=== PATIENT | female | born 1955 | race Caucasian/White ===

== ENCOUNTER 2025-06-26 11:39 | Emergency (ER) | payer MEDICARE, SELFPAY ==
--- OUTSIDE RECORDS SUMMARY | 2011-03-16 06:00 | XMS_ITS | Continuity of Care Document ---
Author Organization Brian [facility] Address [address] [place] [address] Phone Care Team Providers Care Inorganic Chemical Technician Name Role Phone Unavailable Unavailable Unavailable Allergies, Adverse Reactions, Alerts Substance Reaction Status Criticality bisacodyl Active No Information tramadol Active No Information nortriptyline Active No Information sumatriptan Active No Information doxycycline Active No Information AMOXICILLIN TRIHYDRATE Active No In formation citalopram bad dreams Active No Information WARNIN allergy(ies) could not be collected because the type is not supported. Please contact the source practice for further details. Medications Medication Instructions Dosage Effective Dates (start - stop) Status Comments naproxen 500 mg Tab Take two capsules by mouth twice per day (2CAP PO BID) - Active Roxicet 5 mg-325 mg/5 mL Oral Soln Take one tablet by mouth three times per day (1T PO TID) - Active LYRICA 50mgCAPSULE see instructions - Active Fosamax 70 mg Tab unknown - Active Estrace 0.5 mg Tab unknown - Active CALTRATE 600 [id number] Take one capsule by mouth daily (1CAP PO QD) - Active multivitamin Tab unknown - Active Prilosec 20 mg Cap Take one capsule by mouth daily (1CAP PO QD) - Active ROBAXIN 750MGTABLET 1 Tablet by mouth at bedtime (1T PO HS) - No Longer Active DARVOCET-N 100 100-650MGTABLET Take one tablet by mouth every six hours (1T PO Q6H) - No Longer Active LYRICA 50mgCAPSULE 2 Capsules by mouth at bedtime (2CAP PO HS) - No Longer Active Procedures Procedure Date Offic/outpt E&m Estab Low-mod 1 Cervicothorac MB single level 0 Cervicothoracic MB addl level 0 Mod cs by same phys, 5 yrs + Fluoroscopic Guidance For Needle Placeme nt - Spine Marcaine (1 mL = 1 Unit) Epidural Tray Intravenous infusion, for therapy, proph ylaxis, or Versed (1 Mg = 1 Unit) Generator 1000 LR (Ringers) IV Admin Kit Fentanyl Citrate (2 ml = 1 Unit) 2009 Grounding Pad IV Start Kit Inj Anes Facet Jt; Cerv/thor-1st Level S Inj Anes Facet Jt; Cerv/thor-3rd Level S Inj Anes Facet Jt; Cerv/thor-2nd Level S Lo Osm Contr Mat (200-249mg) Epidural Tray Inj Anes Facet Jt; Cerv/thor-1st Level S Inj Anes Facet Jt; Cerv/thor-3rd Level S Inj Anes Facet Jt; Cerv/thor-2nd Level S Marcaine (1 mL = 1 Unit) Lo Osm Contr Mat (200-249mg) Epidural Tray Offic Cons New/estab Mod 40 Mi 10 Advance Directives Directive Yes / No Effective Date File Name No Information Encounters Encounter Description Practice Location Reason(s) For Visit Diagnoses Date Provider Providers Copied on Encounter Offic/outpt E&m Estab Low-mod Brian [facility], [address], [place], [place], [id number], [place] tel:[phone] [facility] No Information 1 No Information Referring Provider: Rupa Elkins MD R, [address] [place], [address]. tel:[phone] [facility], [address], [place], [place], [address], [place] tel:[phone] [facility] No Information 0 Cassim Hazmer. [address], [place], [address], [place]. tel:[phone] Referring Provider: Rupa Elkins MD R, [address] [place], [address]. tel:[phone] [facility], [address], [place], [place], [address], [place] tel:[phone] [facility] No Information 0 Cassim Hazmer. [address], [address], [place], [address], [place]. tel:[phone] Referring Provider: Rupa Elkins MD R, [address] [place], [address]. tel:[phone] Brian [facility], [address], [place], [place], [address], [place] tel:[phone] [facility] No Information 0 Cassim Hazmer. [address], [address], [place], [address], [place]. tel:[phone] Referring Provider: Rupa Elkins MD R, [address] [place], [address]. tel:[phone] Offic Cons New/estab Mod 40 Mi Brian, [facility], [address], [place], [place], [address], [place] tel:[phone] [facility] No Information 9-201 0 Ander SPARROWP Karen. [address], [place], [address], [place]. tel:[phone] Referring Provider: Rupa Elkins MD R, [address] [facility], [place], [address]. tel:[phone] Family History Family Member Type Diagnosis Age At Onset No Information Payers Payer name Insurance type Covered democrat ID Authorlibia isisartemio(s) Blue Plus [id number] Social History Type Description Quantity Date Captured Comments Alcohol Use Details Unknown Caffeine Use Details Unknown Tobacco Use Status No Information Smoking Status No Information Non-Smoking Tobacco Use Details : No Details Available : No Details Available Sex Female Chief Complaint And Reason For Visit No Information Reason For Referral Reason For Referral No Information History Of Present Illness Encounter Date Complaint History Of Prese nt Illness No Information Functional Status Date Functional Assessmen t No Information Instructions Date Instruction Additional Infor mation No Information Assessments Type Assessment Date No Information Patient Care Teams Name Effective Dates (start - stop) Status Members No Information
--- OUTSIDE RECORDS SUMMARY | 2011-03-16 06:00 | XMS_ITS | Continuity of Care Document ---
Author Organization Brian [facility] Address [address] [place] [address] Phone Care Team Providers Care Continuous Towel Roller Name Role Phone Unavailable Unavailable Unavailable Allergies, [...] Effective Dates (start - stop) Status Comments Prilosec 20 mg Cap Take one capsule by mouth daily (1CAP PO QD) - Active multivitamin Tab unknown - Active CALTRATE 600 [id number] Take one capsule by mouth daily (1CAP PO QD) - Active Estrace 0.5 mg Tab unknown - Active Fosamax 70 mg Tab unknown - Active LYRICA 50mgCAPSULE see instructions - Active Roxicet 5 mg-325 mg/5 mL Oral Soln Take one tablet by mouth three times per day (1T PO TID) - Active naproxen 500 mg Tab Take two capsules by mouth twice per day (2CAP PO BID) - Active LYRICA 50mgCAPSULE 2 Capsules by mouth at bedtime (2CAP PO HS) - No Longer Active DARVOCET-N 100 100-650MGTABLET Take one tablet by mouth every six hours (1T PO Q6H) - No Longer Active ROBAXIN 750MGTABLET 1 Tablet by mouth at bedtime (1T PO HS) - No Longer Active Procedures [...] Copied on Encounter Offic/outpt E&m Estab Low-mod Brian, [facility], [address], [place], [place], [id number], [place] tel:[phone] [facility] No Information 1 No Information Referring Provider: Rupa Elkins MD R, [address] [place], [address]. tel:[phone] [facility] Torres, [address], [place], [place], [id number], [place] tel:[phone] [facility] No Information 0 Cassim Hazmer. [address], [place], [address], [place]. tel:[phone] Referring Provider: Rupa Elkins MD R, [address] [place], [address]. tel:[phone] [facility] Torres, [address], [place], [place], [address], [place] tel:[phone] [facility] No Information 0 Cassim Hazmer. [address], [place], [address], [place]. tel:[phone] Referring Provider: Rupa Elkins MD R, [address] [place], [address]. tel:[phone] Brian [facility], [address], [place], [place], [id number], [place] tel:[phone] [facility] No Information 0 Cassim Hazmer. [address], [place], [address], [place]. tel:[phone] Referring Provider: uRpa Elkins MD R, [address] [place], [address]. tel:[phone] Offic Cons New/estab Mod 40 Mi Brian, [facility], [address], [place], [place], [address], [place] tel:[phone] [facility] No Information 9-201 0 Ander SPARROWP Karen. [address], [place], [address], [place]. tel:[phone] Referring Provider: Rupa Elkins MD R, [address] [facility], [place], [address]. tel:[phone] Family History Family Member Type Diagnosis Age At Onset No Information Payers Payer name Insurance type Covered libertarian ID Authorlibia isisartemio(s) Blue Plus [id number] Social History Type Description Quantity Date Captured [...]
--- OUTSIDE RECORDS SUMMARY | 2021-12-03 11:02 | XMS_ITS | Continuity of Care Document ---
Author Organization [facility] Address [address] [place] [address] Phone Care Team Providers Care Neurological Physiotherapist Name Role Phone Will Juanito ALICEA Unavailable Unavailabl e Allergies, Adverse Reactions, Alerts Substance Reaction Status Criticality milnacipran PVC and blurred vision Active No In formation duloxetine difficulty swallowing Active No Inf ormation tramadol headache Active No Information varenicline mental status change Active No Info rmation nortriptyline restlessness Active No Information sumatriptan skin cho Active No Information codeine GI upset Active No Information doxycycline GI upset Active No Information prednisone GI upset Active No Information Medications Medication Instructions Dosage Effective Dates (start - stop) Status Comments medical cannabis ORAL Take as directed - Active 02/22/2018 omeprazole 20 mg capsule,delayed release take 1 capsule by oral route 2 times every day 30 minutes to 1 hour before a meal 20 MG - Active estradiol 0.5 mg tablet take 1 tablet by oral route every day 0.5 MG - Active nabumetone 500 mg tablet take 1 tablet by oral route 2 times every day as needed 500 MG - Active Lyrica 75 mg capsule take 1 Capsule by oral route 3 times every day 75 MG - Active hydrocodone 7.5 mg-acetaminophen 325 mg tablet take 1 - 2 tablet by ORAL route every 4 - 6 hours as needed for pain, max 4 per day 1-2 tablet - Active Humira Pen 40 mg/0.8 mL subcutaneous inject 0.8 milliliter by subcutaneous route every 2 weeks - Active Procedures Procedure Date Drug test def 22+ classes Drug Urine Toxology With Chromatography OFFICE/OUTPATIENT VISIT, NEW Advance Directives Directive Yes / No Effective Date File Name No Information Encounters Encounter Description Practice Location Reason(s) For Visit Diagnoses Date Provider Providers Copied on Encounter [facility], [address] [place] [address] [place], [id number] , [place] [phone] [facility] No Information 2 Laron Solomon. [address] [place], [address] , [place]. tel: [phone] [facility], [address] [place] [address] [place], [address] , [place] tel: [phone] [facility] No Information Chuck Velazquez . [address] [place], [address] , [place]. tel: [phone] OFFICE/OUTPA TIENT VISIT, NEW [facility], [address] [place] [address] [place], [address] , [place] tel: [phone] [facility] Back Pain (chief complaint) Ankylosing spondylitis lumbar regionFibromyalgia CervicalgiaPostlam inectomy syndrome, not elsewhere classifiedRadiculo nicolás, cervical regionRadiculopath y, lumbar region Chuck Velazquez . [address] Kay Ló[place], [place], [address] , [place]. tel:[phone] Referring Provider: [address], [place], [address]. tel:[phone] Family History Family Member Type Diagnosis Age At Onset No Information Payers Payer name Insurance type Covered republican ID Authoriza tion(s) [facility] [id number] [place] [id number] Social History Type Description Quantity Date Captured Comments Sex Female Smoking Status No Information Chief Complaint And Reason For Visit No Information Reason For Referral Reason For Referral No Information Plan Of Treatment Date Type Action Status Future Order: Lab Order COMPLIAN CE DRUG ANALYSIS, URINE, WITH MED REPORT ([id number]), Ordered on: Ordered History Of Present Illness Encounter Date Complaint History Of Prese nt Illness Back Pain Severity level i s 5 most often. Duration: chronic. It occurs persistently. Location of pain is middle back, lower back and neck. Pain is radiated to the right leg.The patient describes the pain as an ache, burning, stabbing and pins & needles. Symptoms are aggravated by ascending stairs, bending, changing positions, descending stairs, sitting, standing, twisting, walking, housework, movement and lying down. Symptoms are relieved by lying down and rest. Back Pain (comments) Jessica is here for initial pain consult. She was referred by Dianne Hodges PA-C for consideration of medical cannabis certification. She will continue to manage Jessica's opioids. She presents with chronic widespread pain, worst pain is in neck and low back. 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 Currently maintained on Humira, but is unable to take it as prescribed due to frequent infections. S/p cervical fusion C4-C5 in 1998. Has completed cervical imaging in the last 5 years, lumbar within the last 3 years. Epidural steroid injections in cervical sprine- no significant relief, lumbar spine- 3-6 months of relief. Trigger point injections provided some relief. Also received costochondral injections 6 weeks ago, with relief. Currently participating in PT in [place].She is interested in medical cannabis, as she has a few family members that have used it. She also hopes to d/c opioid and Lyrica use due to side effects. Lyrica causes vision issues, dry mouth and drowsiness. Functional Status Date Functional Assessmen t No Information Instructions Date Instruction Additional Infor mation No Information Assessments Type Assessment Date No Information Patient Care Teams Name Effective Dates (start - stop) Status Members No Information
--- OUTSIDE RECORDS SUMMARY | 2021-12-03 11:02 | XMS_ITS | Continuity of Care Document ---
Author Organization [facility] Address [address] [place] [address] Phone Care Team Providers Care Shank Tapper Name Role Phone Will Juanito ALICEA Unavailable [...] Diagnoses Date Provider Providers Copied on Encounter [facility], [address] [place] [address] [place], [id number] , [place] tel:[phone] [facility] No Information 2 Laron Solomon. [address] [place], [address] , [place]. tel: [phone] [facility], [address] [place] [address] [place], [address] , [place] tel: [phone] [facility] No Information Chuck Velazquez . [address] [place], [address] , [place]. tel: [phone] OFFICE/OUTPA TIENT VISIT, NEW [facility], [address] [place] [address] [place], [address] , [place] tel: [phone] [facility] Back Pain (chief complaint) Ankylosing spondylitis lumbar regionFibromyalgia CervicalgiaPostlam inectomy syndrome, not elsewhere classifiedRadiculo nicolás, cervical regionRadiculopath y, lumbar region Chuck Velazquez . [address] Kay López [place], [place], [address] , [place]. tel:[phone] Referring Provider: [address], [place], [address]. tel:[phone] Family History Family Member Type Diagnosis Age At Onset No Information Payers Payer name Insurance type Covered libertarian ID Authoriza tion(s) [facility] [id number] Medicare [place] [id number] Social History Type Description Quantity Date Captured Comments Sex Female Smoking Status No Information Chief Complaint And Reason For Visit No Information Reason For Referral Reason For Referral No Information Plan Of Treatment Date Type Action Status Future Order: Lab Order COMPLIAN CE DRUG ANALYSIS, URINE, WITH MED REPORT ([id number]), Ordered on: Ordered History Of Present Illness Encounter Date Complaint History Of Prese nt Illness Back Pain (comments) Jessica is here for initial pain consult. She was referred by Dianne Hodges PA-C for consideration of medical cannabis certification. She will continue to manage Jessica's opioids. She presents with chronic widespread pain, worst pain is in neck and low back. 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 Currently maintained on Humira, but is unable [...] with relief. Currently participating in PT in [place].She is interested in medical cannabis, as she has a few family members that have used it. She also hopes to d/c opioid and Lyrica use due to side effects. Lyrica causes vision issues, dry mouth and drowsiness. Back Pain Severity level i s 5 [...] are relieved by lying down and rest. Functional Status Date Functional Assessmen t No Information Instructions Date Instruction Additional Infor mation No Information Assessments Type Assessment Date No Information Patient Care Teams Name Effective Dates (start - stop) Status Members No Information
--- OUTSIDE RECORDS SUMMARY | 2025-06-26 11:42 | XMS_ITS | Clinical Summary ---
Author Organization [facility] Address [address] [place] [id number] Care Team Providers Care Transport Aircrewman Name Role Phone Jamaal Lim MD Unavailable [phone] Rui Jose Unavailable [phone] Lore Cohen MD Primary Care Pro vider Allergies Active Allergy Reactions Criticality Noted Date Comments Amoxicillin-Pot Clavulanate Diarrhea 01/07/2007 Bupropion Other - Describe In Comment Field 08/20/2011 Lump in throat and hot flashes. Cefdinir Diarrhea 03/09/2012 Citalopram Other - Describe In Comment Field 01/07/2007 bad dreams Codeine GI Upset Low 01/07/2007 gi upset Cyclobenzaprine Restless Legs/Feet 08/17/2022 Duloxetine Other - Describe In Comment Field 09/20/2008 Trouble swallowing; felt like lump in throat; occurred with 2 days of treatment Doxycycline GI Upset 01/07/2007 Sumatriptan 01/07/2007 skin cho Milnacipran 11/06/2010 PVC and blurred vision Nortriptyline Anxiety 01/07/2007 intol restless, muscle relaxants Tetracycline GI Upset Low 12/06/2017 Tramadol Headache 05/22/2008 Medications omeprazole (PRILOSEC) 20 mg Delayed-Release capsuleIndications :Gastroesophageal reflux disease, esophagitis presence not specified Take 1 capsule by mouth 2 times daily before meals. 180 capsule 2 5 Active memtnux-A7-brrs-co pper-yon (Citracal-D3 Maximum Plus) 325 mg-12.5 mcg -2.75 mg tabIndications:Age -related osteoporosis without current pathological fracture Take 1 Tablet by mouth 2 times daily. 0 2 Active multivitamin (MVI) tablet Take 1 Tablet by mouth once daily. 2 Active tiotropium bromide (Spiriva Respimat) 1.25 mcg/actuation mist for inhalationIndicati ons:Other emphysema (HC) Inhale 2 Puffs by mouth once daily. 1 Each 3 Active albuterol HFA (PRO-AIR; VENTOLIN; PROVENTIL) 90 mcg/actuation inhalerIndications :COPD with chronic bronchitis (HC) Inhale 1-2 Puffs by mouth every 6 hours if needed for Shortness Of Breath. 1 Each 5 4 Active alendronate (FOSAMAX) 70 mg tabletIndications: Age-related osteoporosis without current pathological fracture Take 1 Tablet (70 mg) by mouth once a week in the morning. Take on empty stomach with full glass of water. Do not lie down for 1 hr. 12 Tablet 3 4 Active rosuvastatin (CRESTOR) 5 mg tabletIndications: Mixed hyperlipidemia Take 1 Tablet (5 mg) by mouth at bedtime. 90 Tablet 3 4 Active ibuprofen (ADVIL; MOTRIN) 200 mg tablet Take 1 Tablet (200 mg) by mouth 4 times daily if needed. 4 Active estradioL 0.5 mg tabletIndications: Menopause TAKE 1 TABLET BY MOUTH ONCE DAILY. 90 Tablet 3 5 Active pregabalin 150 mg capsuleIndications :Chronic pain syndrome Take 1 capsule by mouth at bedtime. 90 Capsule 3 5 Active buPROPion 150 mg Extended-Release tabletIndications: Adjustment disorder with depressed mood Take 1 Tablet (150 mg) by mouth once daily in the morning. 90 Tablet 3 5 Active Active Problems Problem Noted Date Diagnosed Date Tobacco use 06/26/2024 CKD (chronic kidney disease) , symptom management only, stage 2 (mild) 06/26/2024 Other emphysema 06/02/2022 History of cervical cancer 03/18/2022 Overview (03/18/2022): S/p hysterectomy Ascending aorta dilation 04/29/2021 Squamous cell carcinoma in situ 06/01/2016 Family history of esophageal cancer 07/24/2012 Lipid disorder 03/03/2012 Lumbar facet arthropathy 03/11/2011 Fibromyalgia 02/06/2010 Overview (03/18/2022): Treated with Lyrica, has predominant skin sensitivity (stinging) symptoms). Menopause 10/31/2009 Ankylosing spondylitis 05/14/2009 Congenital bicuspid aortic valve 01/07/2007 Overview (03/19/2022): Annual echo: 2020: Ascending aorta dilated to 4.5 cm Annual echo needed. Migraine, unspecified, witho ut mention of intractable migraine without mention of status migrainosus 01/07/2007 Chronic fatigue syndrome 01/07/2007 Other psoriasis 01/07/2007 Esophageal reflux 01/07/2007 Overview (04/01/2015): EGD 03/2015 normal esophagus and stomach Osteoporosis, unspecified Dysthymia Resolved Problems Problem Noted Date Diagnosed Date Resolved Date Medication management 08/17/20222024 Overview (08/17/2022): Annual visit with clinical [facility] pharmacist for CMR - last 05/07/22. Pain medication agreement 08/08/2013 Overview (06/10/2014): Hydrocodone 7.5/325 #150/month Issue of repeat prescriptions 07/23/2011 12/08/2012 Overview (07/23/2011): Agreement 07/23/2011 Ankylosing spondylitis 05/12/201101/13 Disorders of sacrum 03/11/2011 03/09/20 13 Tonsillar calculus 08/24/2010 3 Chronic pain 04/29/2010 03/18/2022 Restless legs syndrome (RLS) 03/23/2010 03/18/2022 Psoriatic spondylitis 10/16/20092009 Vitamin D deficiency 09/19/2009 013 C. difficile diarrhea 09/10/20092012 Overview (03/30/2010): Colonoscopy 03/2010 normal repeat in 10 years Atrial flutter 09/03/2009 03/09/2013 Influenza-like symptoms 09/03/200908/18 Presumed H1N1 Influenza 09/03/2009 06/0 04/2010 Nausea with vomiting 09/03/2009 009 Dehydration 09/03/2009 09/19/2009 Hypokalemia 09/03/2009 09/19/2009 Hypophosphatemia 09/03/2009 09/19/2009 Fever 09/03/2009 09/10/2009 Cough 09/03/2009 09/10/2009 Thrush 08/11/2009 03/09/2013 Tobacco Use 08/01/2009 06/26/2024 Symptomatic menopausal or fe male climacteric states 12/08/2007 03/09/2013 Myalgia and myositis, unspecified 09/20/2007 03/23/2010 Issue of repeat prescription for medication 08/20/2011 Overview (12/21/2010): vicodin 12/21/2010 Encounters Date Type Department Care Team Description 2025 Nurse Triage [facility] [address] [place] [phone] Lore Cohen MD Abdominal Pain from Last 3 Months Immunizations Immunization Administration Dates Next Due COVID-19 vaccine (Moderna 50 mcg/0.5mL) 12YO+ BIVALENT PF, MDV 07/06/2023 COVID-19 vaccine (Pfizer-Bio NTech 30mcg/0.3mL) 12YO+ FERNANDEZ-SUCROSE PF, MDV 02/19/2022 COVID-19 vaccine (Pfizer-Bio NTech 30mcg/0.3mL) PF, MDV 08/17/2021,01/11/2021,12/21/2020 Influenza A (H1N1), Inactivated 08/27/2009 Influenza Virus, Unspecified 07/08/2022 Influenza, High-dose Inactivated 07/04/2024 Influenza, IIV3 (Age 6-35 mos) 07/23/2011 Influenza, IIV3 (Age >=3 years) 08/08/20 13,08/25/2012,07/23/2011,07/23,08/14/2008 Influenza, IIV4 08/14/2018, 7,07/20/2016,10/20,07/01/2014 Influenza, Inactivated AIIV4 (Age 65+ Years) Preserv Free 07/06/2023,07/23/2020 Influenza, Inactivated IIV3 (Age 65+ Years) Preserv Free 07/23/2019 Meningococcal Vaccine (Menactra) 03/23/2010 Pneumococcal Conj 20-valent (Prevnar 20) 06/26/2024 Pneumococcal Poly,23-Valent (Pneumovax) 03/23/2010 Pneumococcal conj 13-Valent (Prevnar 13) 07/23/2019 RSV, Recombinant ADJ Reconst ituted (Arexvy 120MCG/0.5mL) 07/12/2023 Td (Age >=7 Years) 04/29/2021,03/20/1999 Tdap 12/23/2008 Tuberculin (PPD) 11/17/2011,04/28/2009 Zoster (Shingrix-RZV, recombinant) 06/26/2022, Family History Medical History Relation Name Comments Unknown Father Cancer Mother esophageal Other Sister 1 graves Stroke Sister 2 Cancer-breast No Family History Cancer-ovarian No Family History Relation Name Status Comments Father Alive Mother Sister 1 Sister 2 Social History Tobacco Use Types Packs/Day Years Used Date Smoking Tobacco: Every Day Cigarettes Smokeless Tobacco: Never Tobacco Cessation:Ready to Q uit: Not Asked; Counseling Given: Not Answered Alcohol Use Standard Drinks/Week Comments No 0 (1 standard drink = 0.6 oz pur e alcohol) PHQ-2 Answer Date Recorded PHQ-2 TOTAL SCORE 5 02/21/2025 Social Connections Answer Date Recorded Do you often feel lonely or isolated from those around you? 0 06/26/2024 Financial Resource Strain Answer Date R ecorded Difficulty of Paying Living Expenses 3 06/26/2024 Difficulty of Paying Living Expenses Not on file 06/26/2024 Food Insecurity Answer Date Recorded Do you worry your food will run out before you are able to buy more? 1 06/26/2024 Transportation Needs Answer Date Record ed Does lack of transportation keep you from medica l appointments? 1 06/26/2024 Does lack of transportation keep you from work, meetings or getting things that you need? 1 06/26/2024 Housing Stability Answer Date Recorded What is your housing situation today? 1 06/26/2024 Utilities Answer Date Recorded Do you have trouble paying f or utilities (for example, heat, electricity, water, phone)? 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 Not on file Not on file Not on file Obstetrics History Last Filed Vital Signs Vital Sign Reading Time Taken Comments Blood Pressure 123/79 03/25/2025 3:13 PM CDT Pulse 78 03/25/2025 3:13 PM CDT Temperature 36.5 C (97.7 F) 03/21/2025 1:12 PM CDT Respiratory Rate 15 03/25/2025 3:13 PM CDT Oxygen Saturation 98% 03/25/2025 3:13 PM CDT Inhaled Oxygen Concentration - - Weight 66.2 kg (146 lb) 03/25/2025 2:19 PM CDT Height 173.4 cm (5' 8.25) 03/21/2025 1:12 PM CD T Body Mass Index 22.04 03/21/2025 1:12 PM CDT Plan of Treatment Upcoming Encounters Date Type Department Care Team (Late st Contact Info) Description 10/02/2025 2:10 PM ASSISTANT BRAND MANAGER Appointment [facility] [address], [place] [phone] Lab, [place] 10/02/2025 2:30 PM ASSISTANT BRAND MANAGER Office Visit [facility] [address] [place] [phone] Rosario Larson RN [address] [place], [place] [phone] Lore Cohen MD [address] [place], [place] [phone] Health Maintenance Due Date Last Done Comments Mammogram for age 45-75 03/29/2025 03/29/20 24, 02/16/2023, 02/16/2021, Additional history exists COVID-19 vaccine series (2023- season) 2025 07/04/2024, 07/06/2023, 07/12/2022, Additional history exists Influenza Vaccine (#1) 2025 , 07/06/2023, 07/08/2022, Additional history exists Medicare Wellness for age 65+ 06/27/2025 06/26/2024, 06/26/2024, 06/22/2023, Additional history exists Depression screening for age 12+ 02/21/2026 02/21/2025, 06/26/2024, 03/07/2024, Additional history exists BMI (ht and wt on same day) for age 18+ 03/21/2026 03/21/2025, 02/21/2025, 06/26/2024, Additional history exists Lipids for age 45-75 04/25/2029 04/25/2024, 06/22/2023, 04/29/2021, Additional history exists Colonoscopy through age 75 03/25/203003/25, 03/30/2010, 03/27/2010, Additional history exists Tetanus booster 04/29/2031 04/29/2021, 03/0 06/2009, 03/20/1999 Zoster (shingles) series for age 50+ Completed 06/26/2022, 04/29/2021 DEXA/DXA scan for age 65+ Completed 2022, 05/04/2021, 04/05/2013, Additional history exists Hepatitis C screening for age 18-79 Completed 06/22/2023, 04/27/2010 RSV vaccine for adults or Completed 07/12/2023 Pneumococcal series for age 50+ Completed 06/26/2024, 07/23/2019, 03/23/2010 Hepatitis B series for 19+ Aged Out N o longer eligible based on patient's age to complete this topic Goals Goal Patient Goal Type Associated Problems Recent Progress Patient-Stated? Author Quit Smoking General Yes Rosario Larson, RN Note: She will work on quitting. Cutting back to 1/2 a pack daily. Procedures Procedure Name Priority Date/Time Associated Diagnosis Comments COLONOSCOPY SCREENING SHANTEL 03/25/2025 2:56 PM CDT Positive colorectal cancer screening using Cologuard test LIPID PANEL W REFLEX MEASURED LDL Routine 04/25/2024 8:06 AM CDT Hyperlipidemia, unspecified hyperlipidemia type XR MAMMO JEFFERSON BILAT SCREEN Routine 03/29/2024 2:40 PM CDT Encounter for screening mammogram for malignant neoplasm of breast XR DXA BONE DENSITY 2 SITES AXIAL Routine 06/22/2023 3:14 PM CDT Encounter for osteoporosis screening in asymptomatic postmenopausal patient ANTI HCV Today 06/22/2023 12:49 PM CDT Encounter for screening for other viral diseases from Last 3 Months or Most Recently Relevant to Health Maintenance Results * COLONOSCOPY SCREENING (03/25/2025 2:56 PM CDT) Narrative Juanito Anaya DO - 03/25/2025 2:56 PM CDT Juanito Anaya DO 03/25/2025 2:57 PM PROCEDURE NOTE: SURGEON: Juanito Anaya DO PRE-OP DIAGNOSIS: Positive Cologuard test POST-OP DIAGNOSIS: same PROCEDURE: Colonoscopy with forceps polypectomy ANESTHESIA: MAC ESTIMATED BLOOD LOSS: None COMPLICATIONS: None SPECIMENS: ID Type Source Tests Collected by Time 1 : sigmoid colon polyp Polyp Sigmoid Polyp PATH TISSUE EXAM Juanito Anaya DO 03/25/2025 2:54 PM FINDINGS: 3 mm polyp within the sigmoid colon removed with cold forceps Mild sigmoid diverticulosis INDICATION: Jessica Kumar is a 69 y.o. female who presents for colonoscopy following a positive Cologuard test. She does not have any personal or family history of colon polyps or cancers. All benefits and risks of the procedure were explained to the patient and they wished to proceed with colonoscopy. Please see H&P for more details. PROCEDURE DETAILS: The patient was taken to the endoscopy suite and placed in left lateral decubitus position and MAC anesthesia was induced. A preoperative briefing correctly identified the patient, procedure, and SCIP criteria. A digital rectal exam was performed and there were no hemorrhoids, anal fissures, masses, or polyps. The flexible colonoscope was then inserted into the rectum and advanced under direct visualization until the ileocecal valve and appendiceal orifice were identified. The scope was then gradually withdrawn, inspecting the entire length of the colonic mucosa. The bowel prep was excellent. In the distal rectum, the scope was retroflexed, evaluating the distal rectum and anus. The scope was then removed. The patient awakened and returned to the postoperative recovery area in satisfactory and stable condition. RECOMMENDATIONS: The patient should follow-up for a repeat colonoscopy in 5 years. Juanito Anaya, DO ............ 03/25/2025 2:56 PM Lore Jaquelin Cohen MD GI PROCEDURE ORD Final Result * LIPID PANEL W REFLEX MEASURED LDL (04/25/2024 8:06 AM CDT) Pathologist [facility] CHOLESTEROL,TOTAL 170 100 - 199 mg/dL 04/25/2024 8:13 PM CDT [facility] Comment: Cholesterol, Total Reference Ranges Desirable <200 mg/dL Borderline 200-239 mg/dL High >=240 mg/dL TRIGLYCERIDES 95 <150 mg/dL 04/25/2024 8:13 PM CDT [facility] HDL CHOLESTEROL 67 >40 mg/dL 8:13 PM CDT [facility] NON-HDL CHOLESTEROL 103 <145 mg/dl 04/25/2024 8:13 PM CDT [facility] CHOL/HDL RATIO 2.54 <4.50 04/25/2024 8:13 PM CDT [facility] LDL CHOLESTEROL 84 <=130 mg/dL 04/25/2024 8:13 PM CDT [facility] VLDL CHOLESTEROL 19 <=30 mg/dL 04/25/2024 8:13 PM CDT [facility] PROVIDER ORDERED STATUS RANDOM 04/25/2024 8:13 PM T [facility] Blood BLOOD SPECIMEN / Unknown Venipuncture / Unknown 04/25/2024 8:06 AM CDT 04/25/2024 8:06 AM CDT Deidra Suazo NP CHEMISTRY Final Result [facility] [address] [place] [address], [place] * XR MAMMO JEFFERSON BILAT SCREEN (03/29/2024 2:40 PM CDT) Anatomical Region Laterality Modality BREASTS, Breast Left, Breast Right Bilateral Mammography 03/30/2024 3:49 PM CDT Impressions 03/30/2024 3:50 PM CDT There is no mammographic evidence of malignancy. Recommend annual screening mammography. RECOMMENDATION: BL: Bilateral RC 1: Screening Mammograms BI-RADS: BIRADS 2: Benign Narrative 03/30/2024 3:50 PM CDT EXAM: XR MAMMO JEFFERSON BILAT SCREEN INDICATION: Screening. TECHNIQUE: Digital breast tomography obtained with synthesized and/or digital 2D views. This examination was reviewed with the aid of computer-aided detection (CAD) system. COMPARISON: 02/16/2023, 02/16/2021 BREAST COMPOSITION: BC 3: The breasts are heterogeneously dense, which may obscure small masses. FINDINGS: There are benign appearing calcifications. There are no suspicious masses, calcifications, or other findings in either breast. Lore Cohen MD MAMMO F inal Result * XR DXA BONE DENSITY 2 SITES AXIAL (06/22/2023 3:14 PM CDT) Anatomical Region Laterality Modality Spine, HIPS, HIPL, HIPR Digital Radiography 06/22/2023 3:57 PM CDT Impressions 06/22/2023 3:58 PM CDT 1. Low-normal BMD of the spine. 2. Osteoporosis of the hips. STUDY NOTES Fracture Risk: This fracture risk estimate was calculated using FRAX version 3.08. *Fracture probability is calculated for an untreated patient. Fracture probability may be lower if the patient received treatment. Secondary Bone Loss: Secondary causes of bone loss should be evaluated if clinically indicated since the etiology of low BMD cannot be determined by BMD measurement alone. All treatment decisions require clinical judgment and consideration of individual patient factors,including patient preferences, comorbidities, previous drug use and risk factors not captured in the FRAX model (e.g. frailty, falls, vit. D deficiency, increased bone turnover, interval significant decline in BMD, etc). Osteoporosis Testing Intervals: Intervals between BMD testing should be determined according to each patient's clinical status: Typically, one year after initiation or change of therapy is appropriate, with longer intervals once therapeutic effect is established. In conditions with rapids bone loss, such as glucocorticoid therapy, testing more frequently is appropriate. For many patients, a two year interval is appropriate. Narrative 06/22/2023 3:58 PM CDT EXAM: XR DXA BONE DENSITY 2 SITES AXIAL INDICATION: Encounter for osteoporosis screening in asymptomatic postmenopausal patient TECHNIQUE: Standardized bone density measurements were obtained using the [employer] bone densitometry system. WHO BMD Classification utilized. COMPARISON: None. FINDINGS: LUMBAR SPINE BMD = 1.073 gm/cm2 for the L1-L4 levels. T-score = -0.9 Z-score = 0.8 LEFT HIP Femoral Neck: BMD = 0.710 gm/cm2, T-score -2.4 Total Hip: BMD = 0.672 gm/cm2, T-score -2.7 RIGHT HIP Femoral Neck: BMD = 0.676 gm/cm2, T-score -2.6 Total Hip: BMD = 0.657 gm/cm2, T-score -2.8 FRAX score (10-year Probability of Fracture): Major osteoporotic: 25.9% Hip: 10.3% Procedure Note Vicente White, - 06/22/2023 EXAM: XR DXA BONE DENSITY 2 SITES AXIAL INDICATION: Encounter for osteoporosis screening in asymptomatic postmenopausalpatient TECHNIQUE: Standardized bone density measurements were obtained using the [employer]/ tu.nr bone densitometry system. WHO BMD Classification utilized. COMPARISON: None. FINDINGS: LUMBAR SPINE BMD = 1.073 gm/cm2 for the L1-L4 levels. T-score = -0.9 Z-score = 0.8 LEFT HIP Femoral Neck: BMD = 0.710 gm/cm2, T-score -2.4 Total Hip: BMD = 0.672 gm/cm2, T-score -2.7 RIGHT HIP Femoral Neck: BMD = 0.676 gm/cm2, T-score -2.6 Total Hip: BMD = 0.657 gm/cm2, T-score -2.8 FRAX score (10-year Probability of Fracture): Major osteoporotic: 25.9% Hip: 10.3% IMPRESSION: 1. Low-normal BMD of the spine. 2. Osteoporosis of the hips. STUDY NOTES Fracture Risk: This fracture risk estimate was calculated using FRAXversion 3.08. *Fracture probability is calculated for an untreated patient.Fracture probability may be lower if the patient received treatment. Secondary Bone Loss: Secondary causes of bone loss should be evaluatedif clinically indicated since the etiology of low BMD cannot be determined byBMD measurement alone. All treatment decisions require clinical judgmentand consideration of individual patient factors,including patientpreferences, comorbidities, previous drug use and risk factors not captured in theFRAX model (e.g. frailty, falls, vit. D deficiency, increased bone turnover, interval significant decline in BMD, etc). Osteoporosis Testing Intervals: Intervals between BMD testing should be determined according to each patient's clinical status: Typically, oneyear after initiation or change of therapy is appropriate, with longerintervals once therapeutic effect is established. In conditions with rapids boneloss, such as glucocorticoid therapy, testing more frequently is appropriate.For many patients, a two year interval is appropriate. Lore Jaquelin Cohen MD DEXA F inal Result * ANTI HCV (06/22/2023 12:49 PM CDT) Pathologist [facility] HEPATITIS C ANTIBODY Non-Reacti ve Non-React carmen 06/23/2023 3:31 PM CDT [facility] Comment:Please note, per www .CDC.gov: If a patient is known to be at high risk of HCV infection, or is symptomatic, and the physician's suspicion of HCV infection is high, HCV RNA testing is often employed and is of diagnostic value, even after an initial negative anti-HCV test result. Blood BLOOD SPECIMEN / Unknown Venipuncture / Unknown 06/22/2023 12:49 PM CDT 06/22/2023 12:52 PM CDT us Lore Cohen MD SEND OUTS F inal Result [facility] 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 Healthcare Directive 08/31/2010 HEALTH CARE DIRECTIVE, [facility], 08/31/10 * Full Code (Latest Code Status on File) Date Activated Date Inactivated Comments 03/25/2025 2:16 PM 03/26/2025 2:33 AM Question Answer Comments Code Status Discussion: Unable to Assess Preferences, Provider to review later * Full Code Date Activated Date Inactivated Comments 09/02/2009 9:09 PM 09/08/2009 4:15 PM Care Teams Transport Aircrewman Relationship Specialty Start Date End Date Lore Cohen MD [address] [place] [address] PCP - General Family Practice 05/31/22 Jamaal Lim MD [address] [facility] [address] [place] [address] Rheumatology Rheumatology 11/17/11 Rui Jose [address] [place] [id number] Net Lead Architect 03/03/12
[2025-06-26 11:43] VITALS: BP 116/72; PULSE 84; RESP 18; O2SAT 98; BMI 21.4
--- NOTE | 2025-06-26 12:11 | CRLHL7_ITS ---
For Patients: As a result of the Century Cures Act, medical imaging exams and procedure reports are released immediately into your electronic medical record. You may view this report before your referring provider. If you have questions, please contact your health care provider. Indication: Lower abdominal pain and diarrhea Technique: Volumetric multidetector CT images of the abdomen and pelvis were obtained after the administration of intravenous contrast. 71 cc Isovue 370 low osmolar intravenous contrast Comparison: None available. Findings: There is basilar atelectasis and parenchymal scar. The liver is normal in attenuation without intrahepatic biliary ductal dilatation. The portal vein is patent. The gallbladder is unremarkable without evidence of radiopaque calculus. There is no significant common biliary ductal dilatation or abrupt cut off. The spleen is normal in enhancement and size. Decompressed appearance of the stomach with mild thickening of the gastric mucosa. The pancreas is normal in enhancement without significant atrophy. The adrenal glands are unremarkable. The kidneys demonstrate preserved corticomedullary differentiation without evidence of obstructive uropathy. There is moderate stool seen throughout the proximal colon with focal thickening and trace pericolonic inflammation of the distal transverse colon. There is additional distal colonic diverticulosis without other inflammatory changes. Minimal fluid-filled central small bowel. The appendix is unremarkable. There is no significant mesenteric, retroperitoneal, or pelvic sidewall lymph nodes. The aorta is nonaneurysmal with moderate scattered atherosclerotic calcification. There is prior hysterectomy appreciated. Likely a small ovarian follicle is seen within left ovary. There is no free fluid or free air. The anterior abdominal wall is intact without significant hernias. The lumbar vertebral body heights are grossly maintained with minimal endplate Schmorl`s defects. Trace anterolisthesis of L3 on L4. There is moderate facet arthrosis. Impression: 1. Moderate stool seen throughout the colon with subtle focal thickening and mucosal hyperemia of the mid to distal transverse colon which may represent mild colitis changes. There is questionable mild mucosal shouldering seen most prominently on series 2, image 77. An underlying early mass is not entirely excluded. Correlate with history of colonoscopy. Decompressed appearance of the distal colon with additional colonic diverticulosis. No other obvious inflammatory changes of the colon. 2. No other acute intra-abdominal abnormalities are appreciated. Please note that all CT scans at this facility use dose modulation, iterative reconstruction, and/or weight-based dosing when appropriate to reduce radiation dose to as low as reasonably achievable. Dictated by Blayne Castro MD @ 06/26/2025 1:33:16 PM (Electronically Signed)
--- NOTE | 2025-06-26 12:12 | ED.ABDPAIN ---
HPI - Abdominal Pain General Date Seen: 06/26/25 Chief Complaint: Abdominal Pain Stated Complaint: Abdominal pain, diarrhea Time Seen by Provider: 06/26/25 11:55 Source: patient Mode of arrival: ambulatory Limitations: no limitations History of Present Illness HPI narrative: Patient is a 70-year-old female with no pertinent medical problems presenting to the emergency department for diarrhea and lower abdominal pain. States the symptoms have been going on since June 16. States she will have this cramping sensation in her lower abdomen and she will have up to 20 bowel movements a day of white mucousy stool. Occasionally will go a day without any bowel movements that she takes Imodium but then will have large watery diarrhea. Was on antibiotics in April for tooth extraction. States she was on amoxicillin. Went to an urgent care in [place] were she was staying at the time last week to be evaluated. Lab work and x-ray was done and was told to go to the emergency department. She waited in the emergency department lobby for 10 hours until she eventually just left. She decided to come back up to [place] were she is originally from to be evaluated. She called the clinic to set up a primary care appointment and was told to come to the emergency department. She notes she has had the symptoms twice before. Once in February and once in early May. She states each recurrence last about a week total, but states the pain only last a couple days then gradually gets better. She has not noticed any improvement in her symptoms in the past 10 days. Denies fevers, chills, headache, chest pain, shortness of breath, weakness, numbness, dysuria, lightheadedness, dizziness. Related Data Home Medications ?Medication ?Instructions ?Recorded ?Confirmed albuterol sulfate 90 mcg/actuation 1 - 2 puff inhalation Q6H PRN 06/26/25 06/26/25 aerosol inhaler dyspnea alendronate 70 mg tablet 70 mg PO 06/26/25 estradiol 0.5 mg tablet 0.5 mg PO DAILY 06/26/25 06/26/25 omeprazole 20 mg capsule,delayed 20 mg PO BID 06/26/25 06/26/25 release pregabalin 150 mg capsule 150 mg PO QPM 06/26/25 06/26/25 rosuvastatin 5 mg tablet 5 mg PO DAILY 06/26/25 06/26/25 tiotropium bromide 1.25 2 inh inhalation QAM 06/26/25 06/26/25 mcg/actuation mist for inhalation (Spiriva Respimat) Allergies Allergy/AdvReac Type Severity Reaction Status Date / Time No Known Drug Allergies Allergy Verified 06/26/25 11:52 Review of Systems Status of ROS Reports: 10 or more systems reviewed and unremarkable except as noted in History and below Exam Narrative: Exam Narrative: Const: Well-nourished, Well-developed, in mild distress Eyes: PERRL, no conjunctival injection, and symmetrical lids HENT: Atraumatic external nose and ears. Moist mucous membranes. Neck: Symmetric, trachea midline, No thyromegaly. CVS: RRR, No murmurs or gallops. Peripheral pulses 2+ and equal in all extremities RESP: Unlabored respiratory effort. Clear to auscultation bilaterally. GI: Mild right lower quadrant tenderness but notably the only tender spot is 3 or 4 cm above m[place]urny point. Nondistended, No rebound or guarding. MSK:Extremities w/o deformity, Normal Active ROM Skin: Warm, Dry. No rashes or lesions. Neuro: Normal Muscle tone, No focal neurological deficits. Psych: Awake, Alert, & Oriented x3. Appropriate mood and affect. Const: Vital Signs, click to edit/add: Vital Signs - 24 hr 06/26/25 11:43 Pulse Rate [Right Pulse Oximeter] 84 Respiratory Rate 18 Blood Pressure [Ri ght Upper Arm] 116/72 Pulse Oximetry 98 Oxygen Delivery Me thod Room Air Course Vital Signs Vital signs: Initial Vital Signs Pulse Rate 84 06/26/25 11:43 Pulse Rhythm Regular 06/26/25 11:43 Pulse Strength 3+ Normal 06/26/25 11:43 Respiratory Rate 18 06/26/25 11:43 Blood Pressure 116/72 06/26/25 11:43 Blood Pressure Mean 86 06/26/25 11:43 Blood Pressure Position Sitting 06/26/25 11:43 Pulse Oximetry 98 06/26/25 11:43 Oxygen Delivery Method Room Air 06/26/25 11:43 Vital Signs Pulse Rate 84 06/26/25 11:43 Respiratory Rate 18 06/26/25 11:43 Blood Pressure 116/72 06/26/25 11:43 Pulse Oximetry 98 06/26/25 11:43 Oxygen Delivery Method Room Air 06/26/25 11:43 Pulse Rate 84 06/26/25 11:43 Respiratory Rate 18 06/26/25 11:43 Blood Pressure 116/72 06/26/25 11:43 Pulse Oximetry 98 06/26/25 11:43 Oxygen Delivery Method Room Air 06/26/25 11:43 MDM - Abdominal Pain MDM Narrative Medical decision making narrative: Patient is a 70-year-old female presenting for abdominal pain. Differential this time includes viral gastroenteritis/colitis, appendicitis, diverticulitis, UTI. Due to location pancreatitis and gallbladder/liver disease seems less likely. Her she has not been on any antibiotics recently. I have low concern for toxic megacolon at this time. She declines any pain or nausea medication at this time. Will order CBC, CMP, lipase, urinalysis and do CT scan of the abdomen pelvis. Will check an EKG and troponin to make sure this is not uncommon presentation of ACS. EKG viewed by myself shows no acute concerning abnormalities. Troponin within normal limits. Lab work returned showing no acute concerning abnormalities. She took Imodium prior to arrival and could not provide a stool sample. CT scan was done showing moderate stool throughout the colon a subtle focal thickening and mucosal hyperemia of the mid to distal transverse colon. This could represent mild colitis. Is also a questionable area of thickening that could be an underlying or other mass. Recommend correlating with colonoscopy. She does states she had a colonoscopy back in March so this is unlikely to be a mass. At this time I am not sure what is causing his symptoms but I do not believe there is any emergent issues. She is safe to discharge to follow-up with her primary care provider. She is agreeable to this plan. Lab Data Labs: Lab Results 06/26/25 06/26/25 06/26/25 Range/Units 12:11 12:12 12:27 WBC 8.85 (4.50-11.00) K/uL RBC 4.90 (4.00-5.20) m/uL Hgb 14.4 (12.0-16.0) gm/dL Hct 43.7 (33.0-51.0) % MCV 89 (80-100) fL MCH 29 (26-34) pg MCHC 33 (32-36) gm/dL RDW Coeff of [place] 12.7 (11.5-15.5) % Plt Count 323 (140-440) K/uL Neut % (Auto) 71.2 (42.0-72.0) % Lymph % (Auto) 21.1 (20-44) % [place] % (Auto) 5.8 (0.0-11.0) % Eos % (Auto) 1.2 (0.0-7.0) % Baso % (Auto) 0.6 (0.0-3.0) % Neut # (Auto) 6.30 (1.7-7.0) K/uL Lymph # (Auto) 1.87 (0.90-2.90) K/uL [place] # (Auto) 0.50 (0.00-0.90) K/UL Eos # (Auto) 0.11 (0.00-0.50) K/uL Baso # (Auto) 0.05 (0.00-0.30) K/uL Abs Immat Gran (auto) 0.01 (0.00-0.30) K/uL Imm/Tot Granulo (auto) 0.1 % Sodium 136 (135-149) mmol/L Potassium 3.7 (3.6-5.1) mmol/L Chloride 99 (96-114) mmol/L Carbon Dioxide 29 (20-32) mmol/L Anion Gap 8 (7-15) mEq/L BUN 4 L (7-30) mg/dL Creatinine 0.7 (0.5-1.5) mg/dL Estimated Creat Clear 53.58 Estimated GFR 92 ml/min Glucose 105 (60-115) mg/dL Calcium 9.4 (8.4-10.6) mg/dL Total Bilirubin 0.5 (0.1-1.5) mg/dL AST 28 (12-35) U/L ALT 19 (4-35) U/L Alkaline Phosphatase 55 (40-150) U/L Total Protein 7.2 (6.0-8.3) g/dL Albumin 4.4 (3.3-5.0) g/dL Lipase 75 (23-300) U/L Urine Color (Yellow) Urine Appearance (Clear) Urine pH (5.0-8.5) Ur Specific [place] (1.000-1.030) Urine Protein (Negative) Urine Glucose (UA) (Negative) Urine Ketones (Negative) Urine Blood (Negative) Urine Nitrite (Negative) Urine Bilirubin (Negative) Urine Urobilinogen (0.2-1.0) Ur Leukocyte Esterase (Negative) Urine RBC (0-2) Urine WBC (0-5) Ur Squamous Epith Cells (None-Few) Amorphous Sediment (None) Urine Bacteria (None) SARS-CoV-2 (PCR) Negative SARS-CoV-2 (Negative) Influenza Type A (PCR) Negative PCR FLU A (Negative) Influenza Type B (PCR) Negative PCR FLU B (Negative) RSV (PCR) Negative PCR RSV (Negative) POC Creatinine 0.8 (0.6-1.3) mg/dl POC Troponin I 0.00 L (0.01-0.04) ng/ml 06/26/25 Range/Units Unknown WBC (4.50-11.00) K/uL RBC (4.00-5.20) m/uL Hgb (12.0-16.0) gm/dL Hct (33.0-51.0) % MCV (80-100) fL MCH (26-34) pg MCHC (32-36) gm/dL RDW Coeff of [place] (11.5-15.5) % Plt Count (140-440) K/uL Neut % (Auto) (42.0-72.0) % Lymph % (Auto) (20-44) % [place] % (Auto) (0.0-11.0) % Eos % (Auto) (0.0-7.0) % Baso % (Auto) (0.0-3.0) % Neut # (Auto) (1.7-7.0) K/uL Lymph # (Auto) (0.90-2.90) K/uL [place] # (Auto) (0.00-0.90) K/UL Eos # (Auto) (0.00-0.50) K/uL Baso # (Auto) (0.00-0.30) K/uL Abs Immat Gran (auto) (0.00-0.30) K/uL Imm/Tot Granulo (auto) % Sodium (135-149) mmol/L Potassium (3.6-5.1) mmol/L Chloride (96-114) mmol/L Carbon Dioxide (20-32) mmol/L Anion Gap (7-15) mEq/L BUN (7-30) mg/dL Creatinine (0.5-1.5) mg/dL Estimated Creat Clear Estimated GFR ml/min Glucose (60-115) mg/dL Calcium (8.4-10.6) mg/dL Total Bilirubin (0.1-1.5) mg/dL AST (12-35) U/L ALT (4-35) U/L Alkaline Phosphatase (40-150) U/L Total Protein (6.0-8.3) g/dL Albumin (3.3-5.0) g/dL Lipase (23-300) U/L Urine Color Yellow (Yellow) Urine Appearance Clear (Clear) Urine pH 7.0 (5.0-8.5) Ur Specific [place] 1.015 (1.000-1.030) Urine Protein Negative (Negative) Urine Glucose (UA) Negative (Negative) Urine Ketones Negative (Negative) Urine Blood Negative (Negative) Urine Nitrite Negative (Negative) Urine Bilirubin Negative (Negative) Urine Urobilinogen 1.0 (0.2-1.0) Ur Leukocyte Esterase Negative (Negative) Urine RBC 0-2 (0-2) Urine WBC 0-2 (0-5) Ur Squamous Epith Cells Few (None-Few) Amorphous Sediment Few A (None) Urine Bacteria Few A (None) SARS-CoV-2 (PCR) (Negative) Influenza Type A (PCR) (Negative) Influenza Type B (PCR) (Negative) RSV (PCR) (Negative) POC Creatinine (0.6-1.3) mg/dl POC Troponin I (0.01-0.04) ng/ml Imaging Data CT scan abdomen pelvis: Attestation: I have reviewed the pertinent imaging results. Radiologist's impression: 1. Moderate stool seen throughout the colon with subtle focal thickening and mucosal hyperemia of the mid to distal transverse colon which may represent mild colitis changes. There is questionable mild mucosal shouldering seen most prominently on series 2, image 77. An underlying early mass is not entirely excluded. Correlate with history of colonoscopy. Decompressed appearance of the distal colon with additional colonic diverticulosis. No other obvious inflammatory changes of the colon. 2. No other acute intra-abdominal abnormalities are appreciated. Please note that all CT scans at this facility use dose modulation, iterative reconstruction, and/or weight-based dosing when appropriate to reduce radiation dose to as low as reasonably achievable. Dictated by Blayne Castro MD @ 06/26/2025 1:33:16 PM ECG Data Attestation: I personally reviewed and interpreted this ECG as follows: Prior ECG tracings: not available for review Interpretation: Normal sinus rhythm with a rate of 69 beats per minute, normal intervals, normal axis, no ST or T-wave abnormalities. Discharge Plan Discharge Clinical Impression: Abdominal pain Qualifiers: Abdominal location: lower abdomen, unspecified Qualified Code(s): R10.30 - Lower abdominal pain, unspecified Patient Disposition: Home, Self-Care Condition: Stable Instructions: Abdominal Pain (ED) Additional Instructions: I do not know exactly was causing abdominal pain but CT scan did show possible mild colitis. This is most commonly viral in nature but do recommend following up with the primary care provider and possibly GI. Return for new or worsening symptoms Prescriptions: No Action alendronate 70 mg tablet 70 mg PO estradiol 0.5 mg tablet 0.5 mg PO DAILY albuterol sulfate 90 mcg/actuation HFA aerosol inhaler 1 - 2 puff INHALATION Q6H PRN (Reason: dyspnea) rosuvastatin 5 mg tablet 5 mg PO DAILY pregabalin 150 mg capsule 150 mg PO QPM omeprazole 20 mg capsule,delayed release(DR/EC) 20 mg PO BID Spiriva Respimat 1.25 mcg/actuation mist 2 inh inhalation QAM Follow Up/Referrals: Provider,Not a Local [Primary Care Provider, Family Practice] Stand Alone Forms: [employer] Info Instructions
[2025-06-26 12:33] LABS: Hematocrit* 43.7 % (33.0-51.0); Hemoglobin* 14.4 gm/dL (12.0-16.0); Immature Granulocytes Abs Auto 0.01 K/uL (0.00-0.30); Immature Granulocytes Pct Auto 0.1 %; Lymphocytes Absolute Auto 1.87 K/uL (0.90-2.90); Mean Corpuscular HGB Conc 33 gm/dL (32-36); Mean Corpuscular Hemoglobin 29 pg (26-34); Mean Corpuscular Volume 89 fL (80-100); RDW Coefficient of Variation % 12.7 % (11.5-15.5); Red Blood Count* 4.90 m/uL (4.00-5.20); White Blood Count* 8.85 K/uL (4.50-11.00)
[2025-06-26 12:34] LABS: Slide Review Reflex No
[2025-06-26 12:44] LABS: Troponin, Point-of-Care* 0.00 ng/ml (0.01-0.04)
[2025-06-26 12:47] LABS: Creatinine, Point-of-Care* 0.8 mg/dl (0.6-1.3)
[2025-06-26 12:50] LABS: Albumin* 4.4 g/dL (3.3-5.0); Chloride* 99 mmol/L (96-114)
[2025-06-26 12:51] LABS: Potassium* 3.7 mmol/L (3.6-5.1); Sodium* 136 mmol/L (135-149)
[2025-06-26 12:53] LABS: Alanine Aminotransferase* 19 U/L (4-35); Alkaline Phosphatase* 55 U/L (40-150); Anion Gap 8 mEq/L (7-15); Aspartate Amino Transferase* 28 U/L (12-35); Bilirubin Total* 0.5 mg/dL (0.1-1.5); Blood Urea Nitrogen* 4 mg/dL (7-30); Calcium* 9.4 mg/dL (8.4-10.6); Carbon Dioxide* 29 mmol/L (20-32); Creatinine* 0.7 mg/dL (0.5-1.5); Est. Creatinine Clearance* 53.58; Estimated Glomerular Filt Rate 92 ml/min; Glucose* 105 mg/dL (60-115); Total Protein* 7.2 g/dL (6.0-8.3)
[2025-06-26 13:23] LABS: PCR FLU A Negative PCR FLU A (Negative); PCR FLU B Negative PCR FLU B (Negative); PCR RSV Negative PCR RSV (Negative); SARS PCR* Negative SARS-CoV-2 (Negative)
[2025-06-26 13:23] LABS: Appearance Urine Clear (Clear)
== END 2025-06-26 15:04 | disposition home or self-care (01) ==
PROVIDERS: Emergency Provider Student in an Organized Health Care Education/Training Program
DX: R10.30 Lower abdominal pain, unspecified (principal)
CPT/HCPCS: 36415; 74177; 80053; 81001; 82565; 83690; 84484; 85025; 87086; 87177; 87209; 87493; 87631; 93005; 99284; Q9967